=== PATIENT | female | born 1960 | race Caucasian/White ===

== ENCOUNTER → 2017-05-11 | Outpatient (CLI) | payer BC ==
--- NOTE | 2017-05-12 14:33 | MM ---
Reason for exam: screening (asymptomatic). History: Patient is postmenopausal. Physical Findings: Nurse did not find any significant physical abnormalities on exam. MG Screening Mammo w CAD Bilateral CC and MLO view(s) were taken. No prior studies available for comparison. The breast tissue is heterogeneously dense. This may lower the sensitivity of mammography. No suspicious abnormality. ASSESSMENT: Negative, BI-RAD 1 RECOMMENDATION: Routine screening mammogram of both breasts in 1 year.
== END | disposition home or self-care (01) ==
LOC: RADMAMWWP 11:14
PROVIDERS: ATTEND Family Medicine
DX: Z12.31 Encounter for screening mammogram for malignant neoplasm of breast (principal)

== ENCOUNTER → 2018-04-18 | Outpatient (CLI) | payer BC ==
--- NOTE | 2018-04-18 09:21 | CT ---
EXAMINATION TYPE: CT soft tissue neck w con DATE OF EXAM: 04/18/2018 COMPARISON: None HISTORY: 57-year-old female enlarged lymph nodes, Lump on back of neck TECHNIQUE: Contiguous axial scanning of the soft tissues of the neck performed with IV Contrast, michela ent injected with 100 mL of Isovue 300. Coronal/sagittal reconstructions performed. Technologist brandy MACHADO to sohail the palpable abnormality along the posterior neck. CT DLP: 243.3 mGycm Automated exposure control for dose reduction was used. FINDINGS: Visualized intracranial structures, orbits and globes, and mastoid air cells are clear. Large mucosal retention cyst posterior left maxillary sinus measures 2.0 cm wide. Nasopharynx is clear. Bilateral tubal and pannus routine tonsillar hypertrophy. There is calcifications present in the left palatine tonsil suggesting sequela of prior infection. Oropharynx otherwise clear. The epiglottis and prevertebral soft tissues are within normal limits. Glottic and subglottic structures as well as the tracheal column and visualized upper lungs are clear . The thyroid, submandibular, and parotid glands are satisfactory. There are scattered prominent in some borderline size lymph nodes throughout the neck, particularly, the upper neck and posteriorly. Lymph nodes in the upper posterior triangle of the neck on the right measure up to 9 mm, sagittal jalen ge 24. Level 2A lymph nodes on both sides measure up to 1.1 cm, refer to axial images 56 and coronal image 3 7. Palpable marker is present along the right posterolateral aspect of the upper neck. Directly underlyi ng this is a posterior cervical lymph node measuring 7 mm, refer to coronal image 56 and axial image 52. No enlarged cervical lymphadenopathy by CT size criteria. Bones: No osseous destructive process. IMPRESSION: 1. BILATERAL TUBAL AND PALATINE TONSILLAR HYPERTROPHY WITH CALCIFICATIONS IN THE LEFT PALATINE TONSIL SUGGESTING SEQUELA OF PRIOR INFECTION. 2. SCATTERED NONENLARGED AND BORDERLINE SIZED CERVICAL LYMPH NODES ESPECIALLY IN THE UPPER NECK MEASU RING UP TO 1.1 CM. PROBABLY REACTIVE/POST INFLAMMATORY. NO CERVICAL LYMPHADENOPATHY BY CT SIZE CRITER IA. 3. PALPABLE MARKER UPPER POSTEROLATERAL ASPECT OF THE RIGHT SIDE OF THE NECK. UNDERLYING THIS, THERE IS A PROMINENT BUT NOT ENLARGED 7 MM SUPERFICIAL LYMPH NODE.
== END ==
LOC: RADCTMAIN 08:28
PROVIDERS: ATTEND Family Medicine
DX: J35.1 Hypertrophy of tonsils (principal); R59.0 Localized enlarged lymph nodes
CPT/HCPCS: 70491; Q9967

== ENCOUNTER → 2018-05-30 | Outpatient (CLI) | payer BC ==
--- NOTE | 2018-05-30 11:21 | US ---
EXAMINATION TYPE: US thyroid st tissue head/neck DATE OF EXAM: 05/30/2018 COMPARISON: CLINICAL HISTORY: R59.9 ENLARGED LYMPHNODES NECK AND RT AXILLARY. Per patient, difficulty in swallowi ng. No meds. GLAND SIZE: Right Lobe: 4.8 x 1.6 x 1.0 cm Overall Parenchyma: homogenous Left Lobe: 4.1 x 1.4 x 1.0 cm Overall Parenchyma: homogeneous Isthmus Thickness: 0.2 cm NODULES RIGHT: # of nodules measured on right: 0 LEFT: # of nodules measured on left: 0 ISTHMUS: # of nodules measured in the isthmus: 0 Bilateral neck scanned, no evidence of lymphadenopathy. IMPRESSION: 1. No suspicious thyroid nodules.
--- NOTE | 2018-05-30 12:04 | MM ---
Reason for exam: clinical finding. Last mammogram was performed 1 year and 1 month ago. History: Patient is postmenopausal. Physical Findings: Nurse did not find any significant physical abnormalities on exam. MG 3D Diag Mammo W/Cad JOMAR Bilateral CC and MLO view(s) were taken. Prior study comparison: May 11, 2017, bilateral MG screening mammo w CAD. The breast tissue is heterogeneously dense. This may lower the sensitivity of mammography. No significant new findings when compared with previous films. These results were verbally communicated with the patient and result sheet given to the patient on 05/30/18. ASSESSMENT: Negative, BI-RAD 1 RECOMMENDATION: Routine screening mammogram of both breasts in 1 year. Manage on a clinical basis with regard to right axillary palpable site. Ultrasound is additional evaluation required.
== END | disposition home or self-care (01) ==
LOC: RADMAMWWP 09:33
PROVIDERS: ATTEND Family Medicine
DX: R59.0 Localized enlarged lymph nodes (principal)
CPT/HCPCS: 76536; 77062; 77066

== ENCOUNTER → 2018-05-31 | Day surgery (SDC) | payer BC ==
[2018-05-26 16:15] VITALS: BMI 23.5
[~2018-05-31] MED LIST: LACTATED RINGERS 1,000 ML IV SCH; LIDOCAINE 1% 20 ML VIAL (10MG/ML) FOR IV START INTRADERMA PRN; LIDOCAINE 1% INJ 10MG/ML (20 ML MDV) ONE; MIDAZOLAM (PF) 2 MG/2 ML VIAL IV PRN; PROPOFOL 10 MG/ML 20 ML VIAL IV ONE
[2018-05-31 10:26] VITALS: RESP 16; TEMP 97.3
--- NOTE | 2018-05-31 11:37 | P.GSHP ---
History of Present Illness H&P Date: 05/31/18 Chief Complaint: Epigastric abdominal pain This a 57-year-old female who presents today for EGD. Patient's had complaints of epigastric abdominal pain. Past Medical History Past Medical History: GERD/Reflux, Osteoarthritis (OA) History of Any Multi-Drug Resistant Organisms: None Reported Past Surgical History: Hysterectomy Additional Past Surgical History / Comment(s): VARICOSE VEIN SURGERY Past Anesthesia/Blood Transfusion Reactions: No Reported Reaction Smoking Status: Never smoker - Past Family History Mother Family Medical History: Cancer Medications and Allergies Home Medications Medication Instructions Recorded Confirmed Type No Known Home Medications 04/22/17 05/31/18 History Allergies Allergy/AdvReac Type Severity Reaction Status Date / Time No Known Allergies Allergy Verified 05/31/18 10:19 Surgical - Exam Vital Signs Temp Pulse Resp BP Pulse Ox 97.3 F L 73 16 111/62 97 05/31/18 10:23 05/31/18 10:23 05/31/18 10:23 05/31/18 10:23 05/31/18 10:23 - General well developed, no distress - Eyes PERRL - ENT normal pinna - Neck no masses - Respiratory normal expansion - Cardiovascular Rhythm: regular - Abdomen Mild epigastric pain Abdomen: soft Assessment and Plan Assessment: Epigastric pain. We'll perform EGD.
--- NOTE | 2018-05-31 11:45 | P.OP ---
Date of Procedure: 05/31/18 Preoperative Diagnosis: Epigastric abdominal pain Postoperative Diagnosis: Antral gastritis Small hiatal hernia Esophageal biopsy pathology pending Procedure(s) Performed: EGD Anesthesia: MAC Surgeon: Jacobo Saravia Pathology: other (Antrum, esophagus) Condition: stable Disposition: PACU Description of Procedure: Patient's placed on the endoscopy table in the lateral position. She received IV sedation. The gastroscope placed oropharynx passed in the esophagus and into the stomach. Scope was placed through the pylorus. First and second portion of the duodenum appeared normal. Scope was then brought back the antrum and this appeared mildly inflamed. A biopsies was performed. The scope was then retroflexed the remainder stomach appeared normal. The GE junction was at 40 cm. There was a small hiatal hernia. The distal esophagus. Minimal inflamed and a biopsies performed. The proximal esophagus appeared normal. Scope was withdrawn for patient. Due to the patient's complaints of epigastric dull pain she was scheduled for HIDA scan.
[2018-05-31 12:52] VITALS: BP 114/74; PULSE 62
--- NOTE | 2018-06-01 07:13 | NM ---
EXAMINATION TYPE: NM hepatobiliary w EF DATE OF EXAM: 05/31/2018 COMPARISON: NONE INDICATION: Epigastric pain TECHNIQUE: After the intravenous administration of 4.43 mCi Tc 99m Mebrofenin hepatobiliary scintigra phy is performed. Images were obtained immediately post injection. FINDINGS: There is prompt uptake and excretion of radiotracer by the liver. Extrahepatic ducts are identified at 9 minutes. The gallbladder is visualized within 15 minutes. Small bowel activity is noted within 44 minutes. At one hour 8 ounces of oral ensure plus is given to mimic CCK and gallbladder ejection fraction is c alculated at 43 %, which is in the normal range. (Normal >35% and <80%.). IMPRESSION: 1. Normal hepatobiliary scan
== END | disposition home or self-care (01) ==
LOC: ORWHC2ENDO 09:07
PROVIDERS: ATTEND Surgery
DX: K29.50 Unspecified chronic gastritis without bleeding (principal); K21.0 Gastro-esophageal reflux disease with esophagitis; K44.9 Diaphragmatic hernia without obstruction or gangrene; M19.90 Unspecified osteoarthritis, unspecified site
CPT/HCPCS: 88305; 78226; 43239; A9537; J2001; J2704